=== PATIENT | male | born 1965 | race Caucasian/White ===

== ENCOUNTER 2017-01-11 16:23 | Emergency (ER) | payer OTHER ==
[2017-01-11 16:33] VITALS: BMI 33.4
--- NOTE | 2017-01-11 16:51 | ED PDOC ---
Arrival/HPI - General Time Seen by Provider: 01/11/17 16:38 Historian: Patient - History of Present Illness Narrative History of Present Illness (Text): 01/11/17 16:38 51 y/o male, pmh including htn/hyperlipidemia/dm/VA, nkda, last tetanus under 1 year ago, [employer] [facility] [employer] employee, c/o lt. hand 2nd digit finger laceration x 2 hours. Pt. stated that he was picking up the brokened glass, accidentally cut the lt. hand 2nd digit, bleeding resolved as he is taking aspirin/plavix, no numbness or tingling, no night sweat, no dizziness, no difficulty moving the lt. hand or 2nd digit, no rash, no palpitation, no other medical or psychological complaints. Past Medical History - Provider Review Nursing Documentation Reviewed: Yes - Cardiac Hx VA: Yes Hx Hypertension: Yes - Surgical History Hx Cardiac Catheterization: Yes Hx Coronary Artery Bypass Graft: Yes Family/Social History - Physician Review Nursing Documentation Reviewed: Yes Family/Social History: Unknown Family HX Allergies/Home Meds Allergies/Adverse Reactions: Allergies No Known Allergies Allergy (Verified 04/29/16 13:43) Home Medications: Home Meds Medication Instructions Recorded Confirmed Aspirin [Aspirin EC] 325 mg PO DAILY 04/29/16 04/29/16 Clopidogrel [Plavix] 75 mg PO DAILY 04/29/16 04/29/16 Digoxin [Lanoxin] 0.25 mg PO DAILY 04/29/16 04/29/16 Ezetimibe/Simvastatin [Vytorin 10 1 tab PO DAILY 04/29/16 04/29/16 mg-40 mg] Levothyroxine [Synthroid] 125 mcg PO DAILY 04/29/16 04/29/16 Lisinopril [Zestril] 2.5 mg PO DAILY 04/29/16 04/29/16 MetFORMIN [glucOPHAGE] 1,000 mg PO BID 04/29/16 04/29/16 Metoprolol Tartrate [Lopressor] 25 mg PO DAILY 04/29/16 04/29/16 SITagliptin [Januvia] 100 mg PO DAILY 04/29/16 04/29/16 hydroCHLOROthiazide [Microzide] 12.5 mg PO DAILY 04/29/16 04/29/16 Review of Systems - Review of Systems Constitutional: absent: Fatigue, Fevers Eyes: absent: Vision Changes ENT: absent: Hearing Changes Respiratory: absent: SOB, Cough Cardiovascular: absent: Chest Pain Gastrointestinal: absent: Abdominal Pain, Nausea, Vomiting Musculoskeletal: absent: Arthralgias, Back Pain Skin: Laceration. absent: Rash, Pruritis Neurological: absent: Headache, Dizziness Psychiatric: absent: Anxiety, Depression Physical Exam Temperature: Afebrile Pulse: Regular Respiratory Rate: Normal Appearance: Positive for: Well-Appearing, Non-Toxic, Comfortable Pain Distress: Mild Mental Status: Positive for: Alert and Oriented X 3 - Systems Exam Head: Present: Atraumatic, Normocephalic Pupils: Present: PERRL Extroacular Muscles: Present: EOMI Conjunctiva: Present: Normal Mouth: Present: Moist Mucous Membranes Neck: Present: Normal Range of Motion Respiratory/Chest: Present: Clear to Auscultation, Good Air Exchange. No: Respiratory Distress, Accessory Muscle Use Cardiovascular: Present: Regular Rate and Rhythm, Normal S1, S2. No: Murmurs Abdomen: Present: Normal Bowel Sounds. No: Tenderness, Distention, Peritoneal Signs Back: Present: Normal Inspection Upper Extremity: Present: Normal Inspection, Other (Lt hand 2nd digit: visible skin auvlsion approx. [id number] noted with no skin laceration noted, bleeding resolved, healing well and dry, no signs of infection, FROM without limitation, sensation intact, motor 5/5, +radial pulse, capillary refill< 2 seconds, neurovascular intact. ). No: Cyanosis, Edema Lower Extremity: Present: Normal Inspection. No: Edema Neurological: Present: GCS=15, CN II-XII Intact, Speech Normal Skin: Present: Warm, Dry, Normal Color. No: Rashes Psychiatric: Present: Alert, Oriented x 3, Normal Insight, Normal Concentration Medical Decision Making ED Course and Treatment: 01/11/17 16:53 -Pt. stated that he doesn't feel any foreign bodies. I irrigated the wound with 1000cc normal saline, examined the wound and there is no visible or palpable foreign bodies, clean with betadine, bacitracin and gauze dressing for supportive care. -Discharge home with bacitracin oinment, keep the dressing dry and clean for 48 hours then clean with soap and water twice daily, follow up with your own pmd within 2 days, return to the ER for any new or worsening signs or symptoms. Please remember you are taking aspirin and plavix so the wound bleeding time may be prolonged compared to someone that doesn't taken any aspirin/plavix. - PA / [employer] / Resident Statement /DO has reviewed & agrees with the documentation as recorded. Disposition/Present on Arrival - Present on Arrival Any Indicators Present on Arrival: No History of DVT/PE: No History of Uncontrolled Diabetes: No Urinary Catheter: No History of Decub. Ulcer: No - Disposition Have Diagnosis and Disposition been Completed?: Yes Diagnosis: Finger avulsion Disposition: HOME/ ROUTINE Disposition Time: 16:55 Patient Plan: Discharge Condition: IMPROVED Additional Instructions: -Discharge home with bacitracin oinment, keep the dressing dry and clean for 48 hours then clean with soap and water twice daily, follow up with your own pmd within 2 days, return to the ER for any new or worsening signs or symptoms. Please remember you are taking aspirin and plavix so the wound bleeding time may be prolonged compared to someone that doesn't taken any aspirin/plavix. Prescriptions: Bacitracin Ointment [Bacitracin] 1 appful TOP BID #15 g Referrals: [facility] at [facility] [Outside] - Follow up with primary Mika Cowan III, MD [Medical Doctor] - Follow up with primary Forms: WORK NOTE
[2017-01-11 17:11] VITALS: BP 128/71; PULSE 74; RESP 18; TEMP 98.2; O2SAT 100
== END 2017-01-11 17:16 | disposition home or self-care (01) ==
LOC: ED 16:23
DX: S61.200A Unspecified open wound of right index finger without damage to nail, initial encounter (principal); W25.XXXA Contact with sharp glass, initial encounter; Y92.239 Unspecified place in hospital as the place of occurrence of the external cause; Y99.0 Civilian activity done for income or pay

== ENCOUNTER 2018-04-06 09:21 | Outpatient (CLI) | payer OTHER | END 2018-04-06 09:22 | disposition home or self-care (01) | LOC: LAB 09:21 ==